=== PATIENT | male | born 1955 | race Caucasian/White ===

== ENCOUNTER 2017-09-01 07:25 | Emergency (ER) | payer OTHER ==
[2017-09-01 07:30] VITALS: TEMP 98; BMI 38.0
--- NOTE | 2017-09-01 07:40 | PDOC ---
History of Present Illness - General Chief Complaint: Lightheaded Stated Complaint: dizziness,nausea, htn Time Seen by Provider: 09/01/17 07:29 History Source: Patient Exam Limitations: No Limitations - History of Present Illness Initial Comments: 09/01/17 07:37 62 yo male withh/o hypothyroid. here with c/o feeling lightheaded and nauseas, had been checking bp at home noted it was high. today on train felt lightheaded and nauseas, so returned to come to get it checked out did have tingling in left arm at the time, and funny feeling in his left chest. " twinge " like pain. now all sxs has resolved. has had vertigo in the past, but denies vertigo like sxs currently. no family h/o cad, has had hld, diet controlled. does report heavy drinking drinks 4 - 5 beers / day. quit smoking 25 yrs ago . 4 - 5 yrs ago had stress test which negative. pcp. 09/01/17 07:47 Past History - Past Medical History Allergies/Adverse Reactions: Allergies Allergy/AdvReac Type Severity Reaction Status Date / Time Penicillins Allergy Unknown Verified 09/01/17 07:26 Home Medications: Ambulatory Orders Hyoscyamine 0.25 mg PO DAILY 06/20/14 Levothyroxine [Synthroid -] 300 mcg PO DAILY 06/20/14 Fexofenadine HCl [Liliane Allergy] 0 mg PO DAILY 09/01/17 COPD: No GI Disorders: Yes (GERD) Hypercholesterolemia: Yes Thyroid Disease: Yes - Surgical History Cholecystectomy: Yes - Immunization History TDAP Vaccination: No - Suicide/Smoking/Psychosocial Hx Smoking Status: Yes Smoking History: Never smoked Have you smoked in the past 12 months: No Number of Cigarettes Smoked Daily: 0 Hx Alcohol Use: No Drug/Substance Use Hx: No Substance Use Type: None Review of Systems - Review of Systems Constitutional: No: Chills, Diaphoresis, Fever HEENTM: No: Eye Pain, Blurred Vision, Cataracts Respiratory: No: Cough, Orthopnea Cardiac (ROS): Yes: Chest Pain. No: Edema, Irregular Heart Rate ABD/GI: No: Abdominal Distended : No: Burning, Dysuria, Discharge Musculoskeletal: No: Back Pain, Gout, Joint Pain Integumentary: No: Bruising, Change in Color Neurological: No: Unsteady Gait, Ataxia Psychiatric: No: Depression, Frequent Crying, Stressors, Sleep Pattern Change All Other Systems: Reviewed and Negative *Physical Exam - Vital Signs Last Vital Signs Temp Pulse Resp BP Pulse Ox 98 F 75 16 167/103 98 09/01/17 07:25 09/01/17 07:25 09/01/17 07:25 09/01/17 07:25 09/01/17 07:25 - Physical Exam General Appearance: No: Appropriately Dressed, Apparent Distress HEENT: positive: EOMI, Normal Voice. negative: Normal ENT Inspection Neck: positive: Trachea midline. negative: Decreased range of motion Respiratory/Chest: positive: Lungs Clear, Normal Breath Sounds Cardiovascular: positive: Regular Rhythm, Regular Rate, S1, S2. negative: Edema Gastrointestinal/Abdominal: positive: Normal Bowel Sounds, Flat, Soft. negative : Tender Musculoskeletal: positive: Normal Inspection. negative: CVA Tenderness Extremity: positive: Normal Capillary Refill Integumentary: positive: Normal Color, Dry, Warm Neurologic: positive: fiscal services manager II-XII NML intact, Fully Oriented, Alert, Normal Mood/ Affect, Normal Response, Motor Strength 5/5, Finger to Nose, Other (normal alt hand movement. neg romberg. neg andrea hallpike. gait normal) Heart Score/ECG Review - History History: Slightly suspicious - Electrocardiogram EKG: Normal - Age Age: 45-65 - Risk Factors Risk Factors Heart Score: Yes Hx Hypercholesterolemia, Yes Smoking History Based on the list above the patient has:: 1-2 risk factors - Troponin Troponin: </= normal limit - Score Heart Score - Total: 2 #1 General ECG Interpretation: Sinus Rhythm, Normal Rate, Normal Intervals, No acute ischemic changes (TWI iii ONLY.) ED Treatment Course - LABORATORY CBC & Chemistry Diagram: 09/01/17 07:55 09/01/17 07:55 Medical Decision Making - Medical Decision Making 09/01/17 07:50 62 yo male h/o heavy etoh use, hypothyroid with chest pain, elevated bp differential: anemia electrlyte abnormality, dehydration, acs, infection, normal cerebellar exam. plan labs ekg cxr trop . domenica four hour troponin. will d/w dr. Boles, pt primary . cant remember name of foundry worker apprentice he has seen in the past. 09/01/17 07:52 09/01/17 10:41 Discussed with patient's primary Dr. Dr. Diaz will see patient in office tomorrow. Patient's blood pressure improved without intervention to 144/60 cardiac enzymes negative an EKG unremarkable chest x-ray was normal. *DC/Admit/Observation/Transfer Diagnosis at time of Disposition: Chest pain - Discharge Dispostion Disposition: HOME Condition at time of disposition: Improved - Referrals Referrals: Lukas Bird MD [Staff Physician] - - Patient Instructions Printed Discharge Instructions: DI for Chest Pain, Hypertension (Alternative Therapy) Additional Instructions: return for any recurrent pain or concerns. you should follow up with your primary doctor. call to schedule for appointment tomorrow. you should also follow up with a foundry worker apprentice. to discuss a repeat stress test. you can call dr. Bird, see referral information, or a foundry worker apprentice recommended by your primary doctor. - Post Discharge Activity
[2017-09-01 08:48] VITALS: BP 144/89; PULSE 64
[2017-09-01 08:50] LABS: BASOPHIL 0.8 % (0-2.0); EOSINOPHIL 3.4 % (0-4.5); MCH 32.7 pg (25.7-33.7); MEAN CELL VOLUME 99.1 fl (80-96); MEAN PLT VOLUME 8.1 fl (7.5-11.1); NEUTROPHILS 51.1 % (42.8-82.8); PLATELET COUNT 203 K/MM3 (134-434); RDW 13.1 % (11.9-15.9); WHITE BLOOD COUNT 5.6 K/mm3 (4.0-10.8)
[2017-09-01 09:11] LABS: ALBUMIN 4.3 g/dl (3.5-5.0); ALK PHOS 57 U/L (32-92); ANION GAP 9 (8-16); BILIRUBIN,TOTAL 0.8 mg/dl (0.2-1.0); CALCIUM 10.5 mg/dl (8.4-10.2); CO2 24 mmol/L (22-28); CREATININE 0.7 mg/dl (0.6-1.3); GLUCOSE,RANDOM 96 mg/dl (74-106); SGOT/AST 61 U/L (10-42); SGPT/ALT 68 U/L (10-40); TOT PROT 6.8 g/dl (6.4-8.3)
[2017-09-01 12:25] LABS: CPK 127 IU/L (39-308)
[2017-09-01 12:39] LABS: TROPONIN I (DFP) < 0.03 ng/ml (0.03-0.50)
--- NOTE | 2017-09-03 14:02 | EKG ---
Test Reason : Blood Pressure : / mmHG Vent. Rate : 071 BPM Atrial Rate : 071 BPM P-R Int : 178 ms QRS Dur : 110 ms QT Int : 404 ms P-R-T Axes : 013 -18 007 degrees QTc Int : 439 ms NORMAL SINUS RHYTHM MODERATE VOLTAGE CRITERIA FOR LVH, MAY BE NORMAL VARIANT BORDERLINE ECG NO PREVIOUS ECGS AVAILABLE Confirmed by RONNIE NEELY MD ([id number]) on 09/03/2017 2:01:53 PM Referred By: GUICHO TARIQ Confirmed By:RONNIE NEELY MD
== END 2017-09-01 12:47 | disposition home or self-care (01) ==
LOC: FER 07:25
DX: R07.9 Chest pain, unspecified (principal); E03.9 Hypothyroidism, unspecified; K21.9 Gastro-esophageal reflux disease without esophagitis
CPT/HCPCS: 36415; 71020-TC; 80053; 82550; 84484; 85025; 93005; 99283-25

== ENCOUNTER 2022-08-29 15:32 | Emergency (ER) | payer OTHER ==
[2022-08-29 15:56] VITALS: BP 116/71; PULSE 96; RESP 20; TEMP 98.5; BMI 34.5
== END 2022-08-29 17:04 | disposition home or self-care (01) ==
LOC: FER 15:32
PROC: 0HQFXZZ Repair Right Hand Skin, External Approach (ICD-10-PCS; principal; 2022-08-29)
DX: S61.214A Laceration without foreign body of right ring finger without damage to nail, initial encounter (principal)
CPT/HCPCS: 99283-25

== ENCOUNTER 2023-02-28 13:02 | Emergency (ER) | payer OTHER ==
[2023-02-28 13:15] VITALS: BP 142/80; PULSE 70; RESP 18; TEMP 98.1; BMI 36.8
== END 2023-02-28 15:20 | disposition home or self-care (01) ==
LOC: FER 13:02
DX: M79.662 Pain in left lower leg (principal); L03.116 Cellulitis of left lower limb; M79.89 Other specified soft tissue disorders
CPT/HCPCS: 93971-TC; 99284-25